=== PATIENT | male | born 1975 | race Caucasian/White ===

== ENCOUNTER 2024-09-14 04:55 | Emergency (ER) | payer OTHER ==
[~2024-09-14] VITALS: Ht 170.2 cm; Wt 82.0 kg
[2024-09-14 04:57] VITALS: O2SAT 96
[2024-09-14] MEDS ORDERED: IBUP-2028 MT (07:09)
[2024-09-14 08:40] VITALS: TEMP 36.72516; O2SAT 96
[2024-09-14 08:41] VITALS: BP 144/89; PULSE 84; RESP 18
[2024-09-14] MEDS: IBUPROFEN 400MG TABLET PO ONE (08:41)
== END 2024-09-14 08:40 | disposition home or self-care (01) ==
LOC: ER 04:55
DX: R51.9 Headache, unspecified (principal); M79.631 Pain in right forearm; M25.521 Pain in right elbow; I10 Essential (primary) hypertension; V29.99XA Rider (driver) (passenger) of other motorcycle injured in unspecified traffic accident, initial encounter; Y93.89 Activity, other specified; Y92.89 Other specified places as the place of occurrence of the external cause; Y99.8 Other external cause status
CPT/HCPCS: 99284